=== PATIENT | female | born 1965 | race Caucasian/White ===

== ENCOUNTER 2017-04-11 12:15 | Inpatient (IN) | payer MEDICARE, OTHER ==
[~2017-04-11] VITALS: Ht 170.2 cm; Wt 58.9 kg
[~2017-04-11 12:15] MED LIST: CHOL100011 PO; DIME240C PO; DOCU50LI24 PO; FING0.5C3 PO; MULT1TAB57 PO; MUPI22OI2 TP; PANT40GR PEG; PREG50CA PO; Polyethylene Glycol 3350 PO
[2017-04-11] MEDS ORDERED: SODIUM CHLORIDE 0.9% 1,000 ML IV ONE ×2 (12:26→14:05)
[2017-04-11] MEDS ORDERED: SODIUM CHLORIDE 0.9% 1,000ML IVBOLUS ONE ×2 (12:30→13:30)
[2017-04-11] MEDS ORDERED: SODIUM CHLORIDE FLUSH 10ML SYR IVF ONE (12:30)
[2017-04-11] MEDS ORDERED: PLEASE ENTER HEIGHT AND WEIGHT MC SCH (13:00)
[2017-04-11 13:26] LABS: ASPARTATE AMINO TRANSFERASE 31 U/L (15-37); BLOOD UREA NITROGEN 11 mg/dL (7-18)
[2017-04-11] MEDS ORDERED: methylPREDNISolone SOD SUCC 40 MG/ML IV ONE (13:30)
[2017-04-11 13:39] LABS: DIFF TOTAL CELLS COUNTED 100 CELL DIFF
[2017-04-11 13:45] LABS: VERIFY COUNTS? YES
[2017-04-11 13:46] LABS: LARGE PLATELETS 1+
[2017-04-11] MEDS ORDERED: SODIUM CHLORIDE FLUSH 10ML SYR IVF PRN (14:30)
[2017-04-11] MEDS ORDERED: CEFTRIAXONE PMX 1GM/50ML 50 ML IVPB ONE (14:30)
[2017-04-11] MEDS ORDERED: CEFTRIAXONE PMX 1GM/50ML 50 ML ONE (14:52)
[2017-04-11] MEDS ORDERED: ACETAMINOPHEN 325 MG TABLET PO PRN (17:30)
[2017-04-11] MEDS: SODIUM CHLORIDE 0.9% 1,000 ML IV SCH (23:28)
[2017-04-11] MEDS: ENOXAPARIN 40 MG/0.4 ML SQ SCH (23:30)
[2017-04-11 23:37] VITALS: BP 123/87
[2017-04-12 04:47] VITALS: BP 130/81
[2017-04-12 06:04] LABS: BLOOD UREA NITROGEN 9 mg/dL (7-18)
[2017-04-12 06:28] LABS: DIFF TOTAL CELLS COUNTED 100 CELL DIFF
[2017-04-12 06:36] LABS: VERIFY COUNTS? YES
[2017-04-12 06:45] LABS: GIANT PLATELETS 1+; LARGE PLATELETS 1+
[2017-04-12] MEDS: SODIUM CHLORIDE 0.9% 1,000 ML IV SCH (08:21)
[2017-04-12 08:30] VITALS: BP 133/85
[2017-04-12] MEDS: FINGOLIMOD HCL 0.5 MG HOMEMEDPO SCH (11:57)
[2017-04-12 13:31] VITALS: BP 124/72
[2017-04-12] MEDS: CEFTRIAXONE PMX 1GM/50ML 50 ML IV SCH (14:36)
[2017-04-12 19:35] VITALS: BP 104/69
[2017-04-12] MEDS: ENOXAPARIN 40 MG/0.4 ML SQ SCH (20:53)
[2017-04-13 02:33] VITALS: BP 113/70
[2017-04-13 07:18] VITALS: BP 117/73
[2017-04-13] MEDS: FINGOLIMOD HCL 0.5 MG HOMEMEDPO SCH (09:00)
[2017-04-13] MEDS: CEFTRIAXONE PMX 1GM/50ML 50 ML IV SCH (14:54)
[2017-04-13 16:15] VITALS: BP 119/71
[2017-04-13 19:19] VITALS: BP 108/70
[2017-04-13] MEDS: ENOXAPARIN 40 MG/0.4 ML SQ SCH (20:39)
[2017-04-14 02:49] VITALS: BP 113/71
[2017-04-14 05:48] VITALS: BP 121/75
[2017-04-14] MEDS: FINGOLIMOD HCL 0.5 MG HOMEMEDPO SCH (09:00)
[2017-04-14 14:36] VITALS: BP 112/65
[2017-04-14] MEDS: CEFTRIAXONE PMX 1GM/50ML 50 ML IV SCH (14:47)
[2017-04-14] MEDS ORDERED: SULF1TAB24 PO (16:42)
[2017-04-14 19:20] VITALS: BP 127/83
== END 2017-04-14 20:58 | disposition home or self-care (01) | DRG 871 ==
LOC: ED 12:48 → INTOOBSV 14:05 → EDIP 14:05 → OBSVTOIN 14:05 → 3NE 15:12
PROVIDERS: ADMIT Internal Medicine; ATTEND Internal Medicine
PROC: 0T9B70Z Drainage of Bladder with Drainage Device, Via Natural or Artificial Opening (ICD-10-PCS; principal; 2017-04-11)
DX: A41.9 Sepsis, unspecified organism (principal); G93.41 Metabolic encephalopathy; N39.0 Urinary tract infection, site not specified; G35 Multiple sclerosis; Z99.3 Dependence on wheelchair; Z82.49 Family history of ischemic heart disease and other diseases of the circulatory system
CPT/HCPCS: 36415; 70450; 71010; 80048; 80053; 81001; 82010; 82550; 83605; 83735; 84145; 85025; 87040; 87086; 87324; 89055; 93005; 96361; 96365; J0696; J1650; J2930; G0378; J7030

== ENCOUNTER 2018-05-10 12:50 | Inpatient (IN) | payer MEDICARE, OTHER ==
[~2018-05-10] VITALS: Ht 165.1 cm; Wt 57.4 kg
[~2018-05-10 12:50] MED LIST changes: +SULF1TAB24 PO
[2018-05-10 13:43] LABS: ALBUMIN 3.5 g/dL (3.4-5.0); ANION GAP 3 mmol/L (5-15); CALCIUM 9.3 mg/dL (8.5-10.1); CHLORIDE 109 mmol/L (98-107); CREATININE 0.61 mg/dL (0.55-1.02)
[2018-05-10 13:54] LABS: MEAN CORPUSCULAR HEMOGLOBIN 28.8 pg (27.0-34.8); MEAN CORPUSCULAR HGB CONC 33.2 g/dL (32.4-35.8); MEAN CORPUSCULAR VOLUME 86.7 fL (80-100); MEAN PLATELET VOLUME 11.7 fL (7.4-10.4); PLATELET COUNT 228 x10^3/uL (130-400); RED BLOOD COUNT 5.56 x10^6/uL (3.82-5.3); RED CELL DISTRIBUTION WIDTH 13.4 % (9.6-15.2)
[2018-05-10 13:55] LABS: BASOPHILS # (AUTO) 0.05 x10^3/uL (0-0.1); BASOPHILS % (AUTO) 1 % (0-1); EOSINOPHILS # (AUTO) 0.17 x10^3/uL (0-0.4); EOSINOPHILS % (AUTO) 2 % (1-7); LYMPHOCYTES % (AUTO) 12 % (22-44); MD MORPH REVIEW ONLY; MONOCYTES # (AUTO) 0.71 x10^3/uL (0.2-0.8); MONOCYTES % (AUTO) 8 % (2-9); NEUTROPHILS # (AUTO) 6.97 x10^3/uL (1.8-6.8); NEUTROPHILS % (AUTO) 77 % (42-75)
[2018-05-10 13:56] LABS: <PLATELET ESTIMATE> ADEQUATE; <RBC MORPHOLOGY> NORMAL; GIANT PLATELETS 1+; LARGE PLATELETS 1+
[2018-05-10 14:00] LABS: MICROSCOPIC INDICATED
[2018-05-10] MEDS ORDERED: GADOBUTROL 7.5 MMOL/7.5 ML PFS ONE (14:06)
[2018-05-10 14:32] LABS: CULTURE INDICATED? YES
[2018-05-10] MEDS ORDERED: AUBAGIO (15:54)
[2018-05-10 16:24] VITALS: BP 125/80
[2018-05-10] MEDS ORDERED: TERI14TA PO (16:57)
[2018-05-10] MEDS ORDERED: CHOL10002 PO (16:59)
[2018-05-10] MEDS ORDERED: LABETALOL 5MG/ML, 20ML IVPush PRN (17:00)
[2018-05-10] MEDS: SODIUM CHLORIDE 0.9% 1,000 ML IV SCH (17:02)
[2018-05-10] MEDS: HEPARIN 5,000 UNITS/ML, 1ML SQ SCH (17:02)
[2018-05-10 19:54] VITALS: BP 113/75
[2018-05-11] MEDS: HEPARIN 5,000 UNITS/ML, 1ML SQ SCH ×3 (01:19→16:10)
[2018-05-11 01:33] VITALS: BP 111/75
[2018-05-11 05:25] LABS: ANION GAP 5 mmol/L (5-15); CALCIUM 8.7 mg/dL (8.5-10.1); CHLORIDE 112 mmol/L (98-107); CREATININE 0.47 mg/dL (0.55-1.02)
[2018-05-11 05:37] LABS: MEAN CORPUSCULAR HEMOGLOBIN 29.3 pg (27.0-34.8); MEAN CORPUSCULAR HGB CONC 33.4 g/dL (32.4-35.8); MEAN CORPUSCULAR VOLUME 87.7 fL (80-100); MEAN PLATELET VOLUME 11.5 fL (7.4-10.4); PLATELET COUNT 193 x10^3/uL (130-400); RED BLOOD COUNT 4.78 x10^6/uL (3.82-5.3); RED CELL DISTRIBUTION WIDTH 13.5 % (9.6-15.2)
[2018-05-11 06:05] LABS: BASOPHILS # (AUTO) 0.01 x10^3/uL (0-0.1); BASOPHILS % (AUTO) 0 % (0-1); EOSINOPHILS % (AUTO) 0 % (1-7); LYMPHOCYTES # (AUTO) 0.39 x10^3/uL (1-3.4); LYMPHOCYTES % (AUTO) 7 % (22-44); MD MORPH REVIEW ONLY; MONOCYTES # (AUTO) 0.02 x10^3/uL (0.2-0.8); MONOCYTES % (AUTO) 0 % (2-9); NEUTROPHILS % (AUTO) 92 % (42-75)
[2018-05-11 06:06] LABS: <PLATELET ESTIMATE> ADEQUATE; <RBC MORPHOLOGY> NORMAL; GIANT PLATELETS 1+; LARGE PLATELETS 1+
[2018-05-11] MEDS: SODIUM CHLORIDE 0.9% 1,000 ML IV SCH ×2 (06:15→21:31)
[2018-05-11 08:00] VITALS: BP 108/70
[2018-05-11] MEDS: CHOLECALCIFEROL 1,000 UNIT TABLET PO SCH (08:53)
[2018-05-11] MEDS: TERIFLUNOMIDE 14 MG PO SCH (08:53)
[2018-05-11] MEDS ORDERED: CEFTRIAXONE 1,000 MG in SODIUM CHLORIDE 0.9% 50 ML IV SCH (09:00)
[2018-05-11] MEDS ORDERED: methylPREDNISolone SOD SUCC 40 MG/ML IV SCH (09:00)
[2018-05-11 13:31] VITALS: BP 103/67
[2018-05-11] MEDS ORDERED: SODIUM CHLORIDE 0.9% 1,000ML IVBOLUS ONE (14:00)
[2018-05-11 17:59] VITALS: BP 113/73
[2018-05-11] MEDS ORDERED: SODIUM CHLORIDE 0.9%, 500ML IVBOLUS ONE (18:30)
[2018-05-11 20:00] VITALS: BP 106/69
[2018-05-12] MEDS: HEPARIN 5,000 UNITS/ML, 1ML SQ SCH ×3 (01:14→16:47)
[2018-05-12 01:18] VITALS: BP 126/81
[2018-05-12 08:00] VITALS: BP 126/81
[2018-05-12] MEDS: CHOLECALCIFEROL 1,000 UNIT TABLET PO SCH (08:00)
[2018-05-12] MEDS: TERIFLUNOMIDE 14 MG PO SCH (08:01)
[2018-05-12] MEDS: SODIUM CHLORIDE 0.9% 1,000 ML IV SCH (09:28)
[2018-05-12 14:00] VITALS: BP 144/84
[2018-05-12 18:24] VITALS: BP 115/78
[2018-05-12 20:01] VITALS: BP 120/81
[2018-05-13] MEDS: HEPARIN 5,000 UNITS/ML, 1ML SQ SCH ×3 (01:29→16:52)
[2018-05-13 01:30] VITALS: BP 146/93
[2018-05-13] MEDS: SODIUM CHLORIDE 0.9% 1,000 ML IV SCH ×2 (01:30→16:18)
[2018-05-13 07:13] VITALS: BP 132/84
[2018-05-13] MEDS: TERIFLUNOMIDE 14 MG PO SCH (07:57)
[2018-05-13] MEDS: CHOLECALCIFEROL 1,000 UNIT TABLET PO SCH (07:57)
[2018-05-13 13:00] VITALS: BP 113/75
[2018-05-13 13:43] VITALS: BP 127/81
[2018-05-13] MEDS ORDERED: SODIUM CHLORIDE 0.9%, 500ML IVBOLUS ONE (14:30)
[2018-05-13 20:38] VITALS: BP 122/79
[2018-05-14] MEDS: HEPARIN 5,000 UNITS/ML, 1ML SQ SCH ×3 (01:07→17:55)
[2018-05-14 05:39] VITALS: BP 136/85
[2018-05-14] MEDS: SODIUM CHLORIDE 0.9% 1,000 ML IV SCH ×2 (06:14→17:55)
[2018-05-14 07:26] VITALS: BP 118/72
[2018-05-14] MEDS: CHOLECALCIFEROL 1,000 UNIT TABLET PO SCH (10:14)
[2018-05-14] MEDS: TERIFLUNOMIDE 14 MG PO SCH (10:15)
[2018-05-14 12:22] VITALS: BP 125/80
[2018-05-14 20:54] VITALS: BP 125/82
[2018-05-15] MEDS: HEPARIN 5,000 UNITS/ML, 1ML SQ SCH ×3 (02:16→16:51)
[2018-05-15 02:25] VITALS: BP 152/92
[2018-05-15 07:56] VITALS: BP 126/79
[2018-05-15] MEDS: CHOLECALCIFEROL 1,000 UNIT TABLET PO SCH (08:26)
[2018-05-15] MEDS: TERIFLUNOMIDE 14 MG PO SCH (08:27)
[2018-05-15 12:25] VITALS: BP 115/72
[2018-05-15 21:45] VITALS: BP 156/88
[2018-05-16] MEDS: HEPARIN 5,000 UNITS/ML, 1ML SQ SCH ×3 (01:49→16:42)
[2018-05-16 02:17] VITALS: BP 133/83
[2018-05-16 06:50] VITALS: BP 113/70
[2018-05-16] MEDS: CHOLECALCIFEROL 1,000 UNIT TABLET PO SCH (09:36)
[2018-05-16] MEDS: TERIFLUNOMIDE 14 MG PO SCH (09:37)
[2018-05-16 14:54] VITALS: BP 133/86
[2018-05-16 18:50] VITALS: BP 99/64
[2018-05-17 00:54] VITALS: BP 126/81
[2018-05-17] MEDS: HEPARIN 5,000 UNITS/ML, 1ML SQ SCH ×2 (01:01→08:10)
[2018-05-17 07:00] VITALS: BP 131/82
[2018-05-17] MEDS: TERIFLUNOMIDE 14 MG PO SCH (08:10)
[2018-05-17] MEDS: CHOLECALCIFEROL 1,000 UNIT TABLET PO SCH (08:10)
[2018-05-17] MEDS ORDERED: PRED20TA PO (10:53)
[2018-05-17 13:46] VITALS: BP 108/71
== END 2018-05-17 16:45 | DRG 58 ==
LOC: ED 15:04 → EDIP 15:05 → ED 15:19 → 4EST 16:11
PROVIDERS: ADMIT Hospitalist; ATTEND Hospitalist
PROC: 0T9B70Z Drainage of Bladder with Drainage Device, Via Natural or Artificial Opening (ICD-10-PCS; principal; 2018-05-10)
DX: G35 Multiple sclerosis (principal); R53.2 Functional quadriplegia; N39.0 Urinary tract infection, site not specified; E44.0 Moderate protein-calorie malnutrition; R32 Unspecified urinary incontinence; Z68.21 Body mass index [BMI] 21.0-21.9, adult; Z87.440 Personal history of urinary (tract) infections; Z91.81 History of falling
CPT/HCPCS: 36415; 70553; 80048; 81001; 82040; 82962; 83735; 84100; 85025; 85379; 87086; 93005; 96374; A9585; J0696; J1644; J2930; J7030; J7040; J7512

== ENCOUNTER 2018-06-18 11:54 | Emergency (ER) | payer MEDICARE, OTHER ==
[~2018-06-18] VITALS: Ht 167.6 cm; Wt 110.0 kg
[~2018-06-18 11:54] MED LIST changes: +AUBAGIO; +CHOL10002 PO; +PRED20TA PO; +TERI14TA PO
[2018-06-18] MEDS ORDERED: CHOL10002 PO (12:21)
[2018-06-18] MEDS ORDERED: BACL-19 PO (12:21)
[2018-06-18] MEDS ORDERED: TERI14TA PO (12:21)
[2018-06-18] MEDS ORDERED: SODIUM CHLORIDE FLUSH 10ML SYR IVF ONE (12:30)
[2018-06-18] MEDS ORDERED: SODIUM CHLORIDE 0.9% 1,000ML IVBOLUS ONE (12:30)
[2018-06-18] MEDS ORDERED: PLEASE ENTER ALLERGIES MC SCH (12:30)
[2018-06-18 12:53] LABS: BASOPHILS # (AUTO) 0.07 x10^3/uL (0-0.1); BASOPHILS % (AUTO) 1 % (0-1); EOSINOPHILS # (AUTO) 0.07 x10^3/uL (0-0.4); EOSINOPHILS % (AUTO) 1 % (1-7); LYMPHOCYTES # (AUTO) 0.72 x10^3/uL (1-3.4); LYMPHOCYTES % (AUTO) 8 % (22-44); MD NO; MEAN CORPUSCULAR HEMOGLOBIN 29.4 pg (27.0-34.8); MEAN CORPUSCULAR HGB CONC 32.7 g/dL (32.4-35.8); MEAN CORPUSCULAR VOLUME 89.8 fL (80-100); MEAN PLATELET VOLUME 10.3 fL (7.4-10.4); MONOCYTES # (AUTO) 0.67 x10^3/uL (0.2-0.8); MONOCYTES % (AUTO) 7 % (2-9); NEUTROPHILS # (AUTO) 7.61 x10^3/uL (1.8-6.8); NEUTROPHILS % (AUTO) 83 % (42-75); PLATELET COUNT 234 x10^3/uL (130-400); RED BLOOD COUNT 4.85 x10^6/uL (3.82-5.3); RED CELL DISTRIBUTION WIDTH 15.8 % (9.6-15.2)
[2018-06-18 13:04] LABS: ALBUMIN 2.9 g/dL (3.4-5.0); ANION GAP 6 mmol/L (5-15); CALCIUM 8.9 mg/dL (8.5-10.1); CHLORIDE 112 mmol/L (98-107); CREATININE 0.57 mg/dL (0.55-1.02)
[2018-06-18 13:29] LABS: MICROSCOPIC INDICATED
[2018-06-18 13:33] LABS: CULTURE INDICATED? YES
[2018-06-18] MEDS ORDERED: CEFTRIAXONE 1,000 MG in SODIUM CHLORIDE 0.9% 50 ML IV ONE (14:00)
[2018-06-18] MEDS ORDERED: CEFTRIAXONE PMX 1GM/50ML 50 ML ONE (14:49)
[2018-06-18 14:53] VITALS: BP 122/80
== END 2018-06-18 15:23 | disposition home or self-care (01) ==
LOC: MERGE 11:54 → EDBD 11:54 → ED 14:12
DX: I10 Essential (primary) hypertension (principal); N30.00 Acute cystitis without hematuria; R50.9 Fever, unspecified; G35 Multiple sclerosis; Z74.01 Bed confinement status
CPT/HCPCS: 36415; 71045; 80048; 81001; 82040; 83605; 84145; 85025; 87040; 87077; 87086; 96365; 99285; J0696; J7030; 87186

== ENCOUNTER 2018-12-20 15:10 | Inpatient (IN) | payer MEDICARE, OTHER ==
[~2018-12-20] VITALS: Ht 167.6 cm; Wt 44.1 kg
[~2018-12-20 15:10] MED LIST changes: +BACL-19 PO; +SULF-169 PO
[2018-12-20] MEDS ORDERED: SODIUM CHLORIDE 0.9% 1,000ML IVBOLUS ONE ×3 (15:30→17:30)
[2018-12-20 16:06] LABS: MEAN CORPUSCULAR HEMOGLOBIN 29.5 pg (27.0-34.8); MEAN CORPUSCULAR HGB CONC 31.9 g/dL (32.4-35.8); MEAN CORPUSCULAR VOLUME 92.3 fL (80-100); MEAN PLATELET VOLUME 10.2 fL (7.4-10.4); PLATELET COUNT 324 x10^3/uL (130-400); RED BLOOD COUNT 4.59 x10^6/uL (3.82-5.3); RED CELL DISTRIBUTION WIDTH 14.9 % (9.6-15.2)
--- NOTE | 2018-12-20 16:09 | NUR ---
PT'S PREVIOUS PINO WHICH SHE CAME IN WITH REMOVED, PT STRAIGHT CATH'ED, SAMPLE WALKED TO LAB, PUREWICK APPLIED, XRAY AT BEDSIDE, FLUIDS INFUSING, PT REPORTS NO NEEDS AT THIS TIME. PT'S SACRAL WOUND DRESSED W/ MEPILEX
[2018-12-20 16:10] LABS: ALBUMIN 2.9 g/dL (3.4-5.0); ANION GAP 7 mmol/L (5-15); CALCIUM 8.1 mg/dL (8.5-10.1); CHLORIDE 111 mmol/L (98-107)
--- NOTE | 2018-12-20 16:11 | NUR ---
Report from Cynthia SMITH.
[2018-12-20 16:13] LABS: ALANINE AMINOTRANSFERASE 12 U/L (12-78); ALKALINE PHOSPHATASE 72 U/L (45-117); BILIRUBIN,TOTAL 0.7 mg/dL (0.2-1.0); CREATININE 0.62 mg/dL (0.55-1.02); TOTAL PROTEIN 6.2 g/dL (6.4-8.2)
--- NOTE | 2018-12-20 16:17 | NUR ---
bedside report to jesica dorsey care transferred at this time
[2018-12-20 16:26] LABS: MICROSCOPIC INDICATED
[2018-12-20 16:27] LABS: MD YES
[2018-12-20 16:27] LABS: CULTURE INDICATED? YES
[2018-12-20 17:14] LABS: BAND#(MANUAL) 0.96 x10^3/uL; BANDS%(MANUAL) 5 % (0-7); LYMPH#(MANUAL) 0.57 x10^3/uL (1-3.4); LYMPHS% (MANUAL) 3 % (22-44); MONOS#(MANUAL) 0.76 x10^3/uL (0.3-2.7); MONOS% (MANUAL) 4 % (2-9); SEG#(MANUAL) 16.81 x10^3/uL (1.8-6.8); SEGS% (MANUAL) 88 % (42-75)
[2018-12-20 17:15] LABS: <PLATELET ESTIMATE> ADEQUATE; <PLT MORPHOLOGY> NORMAL PLT MORPH; <RBC MORPHOLOGY> NORMAL
[2018-12-20] MEDS ORDERED: CEFTRIAXONE PMX 1GM/50ML 50 ML ONE (17:20)
[2018-12-20] MEDS ORDERED: CEFTRIAXONE PMX 1GM/50ML 50 ML IV ONE (17:30)
--- NOTE | 2018-12-20 17:35 | NUR ---
Report to floor RN. Pt ready for transport. ABX infusing to floor, per md only 2L ns to be infused, 3rd L non administered. Purewick in place, output in canister, chucks changed, pt cleaned.
[2018-12-20] MEDS ORDERED: POLYETHYLENE GLYCOL 17 GM PACKET PO PRN (18:30)
[2018-12-20] MEDS ORDERED: CEFTRIAXONE PMX 1GM/50ML 50 ML IV SCH (18:30)
[2018-12-20] MEDS ORDERED: ACETAMINOPHEN 325 MG TABLET PO PRN (18:30)
[2018-12-20] MEDS ORDERED: ONDANSETRON ODT 4 MG PO PRN (18:30)
[2018-12-20] MEDS ORDERED: BISACODYL 10 MG SUPP PR PRN (18:30)
[2018-12-20 18:54] VITALS: BP 122/84
[2018-12-20] MEDS: SODIUM CHLORIDE 0.9% 1,000 ML IV SCH (19:51)
[2018-12-20] MEDS: LEVOFLOXACIN/PMX 500MG/100ML 100 ML IV SCH (19:54)
[2018-12-20] MEDS: HEPARIN 5,000 UNITS/ML, 1ML SQ SCH (22:22)
[2018-12-21] MEDS: SODIUM CHLORIDE 0.9% 1,000 ML IV SCH ×4 (02:23→23:04)
[2018-12-21 02:30] VITALS: BP 145/80
[2018-12-21 05:12] LABS: BASOPHILS # (AUTO) 0.05 x10^3/uL (0-0.1); BASOPHILS % (AUTO) 0 % (0-1); EOSINOPHILS # (AUTO) 0.03 x10^3/uL (0-0.4); EOSINOPHILS % (AUTO) 0 % (1-7); LYMPHOCYTES # (AUTO) 0.79 x10^3/uL (1-3.4); LYMPHOCYTES % (AUTO) 6 % (22-44); MD NO; MEAN CORPUSCULAR HEMOGLOBIN 30.1 pg (27.0-34.8); MEAN CORPUSCULAR HGB CONC 32.8 g/dL (32.4-35.8); MEAN CORPUSCULAR VOLUME 91.7 fL (80-100); MEAN PLATELET VOLUME 10.5 fL (7.4-10.4); MONOCYTES # (AUTO) 0.71 x10^3/uL (0.2-0.8); MONOCYTES % (AUTO) 5 % (2-9); NEUTROPHILS # (AUTO) 11.47 x10^3/uL (1.8-6.8); NEUTROPHILS % (AUTO) 88 % (42-75); PLATELET COUNT 271 x10^3/uL (130-400); RED BLOOD COUNT 4.03 x10^6/uL (3.82-5.3); RED CELL DISTRIBUTION WIDTH 14.7 % (9.6-15.2)
[2018-12-21 05:14] LABS: ALANINE AMINOTRANSFERASE 11 U/L (12-78); ALBUMIN 2.5 g/dL (3.4-5.0); ANION GAP 5 mmol/L (5-15); CALCIUM 8.3 mg/dL (8.5-10.1); CHLORIDE 113 mmol/L (98-107)
[2018-12-21 05:17] LABS: ALKALINE PHOSPHATASE 67 U/L (45-117); BILIRUBIN,TOTAL 0.6 mg/dL (0.2-1.0); CREATININE 0.36 mg/dL (0.55-1.02); TOTAL PROTEIN 5.7 g/dL (6.4-8.2)
[2018-12-21] MEDS: HEPARIN 5,000 UNITS/ML, 1ML SQ SCH ×3 (05:50→23:04)
[2018-12-21 08:01] VITALS: BP 124/84
[2018-12-21] MEDS: TERIFLUNOMIDE 14 MG PO SCH (09:00)
[2018-12-21] MEDS: SENNA/DOCUSATE TABLET PO SCH (10:55)
[2018-12-21] MEDS: CHOLECALCIFEROL 1,000 UNIT TABLET PO SCH (11:05)
--- NOTE | 2018-12-21 13:07 | NUR ---
REC: Chopped diet with thin liquids; aspiration precautions Addendum: 12/21/18 at 1307 by Jade KOCH Amended: Links added.
[2018-12-21 14:38] VITALS: BP 123/81
[2018-12-21] MEDS: LEVOFLOXACIN/PMX 500MG/100ML 100 ML IV SCH (18:40)
[2018-12-21 19:03] VITALS: BP 121/77
[2018-12-22 01:07] VITALS: BP 138/89
[2018-12-22] MEDS: SODIUM CHLORIDE 0.9% 1,000 ML IV SCH ×3 (05:13→22:22)
[2018-12-22] MEDS: HEPARIN 5,000 UNITS/ML, 1ML SQ SCH ×2 (06:41→15:52)
[2018-12-22 06:56] LABS: ALBUMIN 2.6 g/dL (3.4-5.0); ANION GAP 6 mmol/L (5-15); CALCIUM 8.3 mg/dL (8.5-10.1); CHLORIDE 113 mmol/L (98-107); CREATININE 0.33 mg/dL (0.55-1.02)
[2018-12-22 06:58] LABS: BASOPHILS # (AUTO) 0.07 x10^3/uL (0-0.1); BASOPHILS % (AUTO) 1 % (0-1); EOSINOPHILS # (AUTO) 0.17 x10^3/uL (0-0.4); EOSINOPHILS % (AUTO) 2 % (1-7); LYMPHOCYTES # (AUTO) 0.81 x10^3/uL (1-3.4); LYMPHOCYTES % (AUTO) 11 % (22-44); MD NO; MEAN CORPUSCULAR HEMOGLOBIN 30.3 pg (27.0-34.8); MEAN CORPUSCULAR VOLUME 91.8 fL (80-100); MEAN PLATELET VOLUME 10.4 fL (7.4-10.4); MONOCYTES # (AUTO) 0.53 x10^3/uL (0.2-0.8); MONOCYTES % (AUTO) 7 % (2-9); NEUTROPHILS # (AUTO) 5.77 x10^3/uL (1.8-6.8); NEUTROPHILS % (AUTO) 79 % (42-75); PLATELET COUNT 254 x10^3/uL (130-400); RED BLOOD COUNT 4.13 x10^6/uL (3.82-5.3); RED CELL DISTRIBUTION WIDTH 14.7 % (9.6-15.2)
[2018-12-22] MEDS: CHOLECALCIFEROL 1,000 UNIT TABLET PO SCH (07:39)
[2018-12-22] MEDS: SENNA/DOCUSATE TABLET PO SCH (07:39)
[2018-12-22] MEDS: TERIFLUNOMIDE 14 MG PO SCH (07:40)
[2018-12-22 08:22] VITALS: BP 109/73
[2018-12-22] MEDS ORDERED: POTASSIUM CHLORIDE 40 MEQ in SODIUM CHLORIDE 0.9% 500 ML IV ONE (10:00)
[2018-12-22 14:55] VITALS: BP 115/82
[2018-12-22] MEDS ORDERED: LEVOFLOXACIN 500 MG TABLET PO SCH (18:00)
[2018-12-22 20:30] VITALS: BP 119/75
[2018-12-23] MEDS: HEPARIN 5,000 UNITS/ML, 1ML SQ SCH ×3 (01:15→18:00)
[2018-12-23 02:59] VITALS: BP 144/82
[2018-12-23] MEDS: SODIUM CHLORIDE 0.9% 1,000 ML IV SCH ×2 (04:55→22:29)
[2018-12-23 05:48] LABS: ALBUMIN 2.4 g/dL (3.4-5.0); ANION GAP 6 mmol/L (5-15); CALCIUM 8.3 mg/dL (8.5-10.1); CHLORIDE 115 mmol/L (98-107); CREATININE 0.26 mg/dL (0.55-1.02)
[2018-12-23 06:53] VITALS: BP 138/85
[2018-12-23] MEDS: LEVOFLOXACIN/PMX 750MG/150ML 150 ML IV SCH (09:56)
[2018-12-23] MEDS: TERIFLUNOMIDE 14 MG PO SCH (09:57)
[2018-12-23] MEDS: CHOLECALCIFEROL 1,000 UNIT TABLET PO SCH (09:57)
[2018-12-23] MEDS: SENNA/DOCUSATE TABLET PO SCH (09:57)
[2018-12-23] MEDS ORDERED: POTASSIUM CHLORIDE 10% 40 MEQ/30 ML UDC PO ONE (11:00)
[2018-12-23 12:57] VITALS: BP 116/77
[2018-12-23 20:25] VITALS: BP 117/80
[2018-12-24] MEDS: HEPARIN 5,000 UNITS/ML, 1ML SQ SCH ×3 (01:58→17:00)
[2018-12-24 02:06] VITALS: BP 144/92
[2018-12-24 02:08] VITALS: BP 129/86
[2018-12-24 04:56] LABS: ALBUMIN 2.5 g/dL (3.4-5.0); ANION GAP 5 mmol/L (5-15); CALCIUM 8.8 mg/dL (8.5-10.1); CHLORIDE 112 mmol/L (98-107)
[2018-12-24 04:57] LABS: CREATININE 0.23 mg/dL (0.55-1.02)
[2018-12-24] MEDS: SODIUM CHLORIDE 0.9% 1,000 ML IV SCH ×2 (05:11→14:30)
[2018-12-24 07:36] VITALS: BP 128/81
[2018-12-24] MEDS: CHOLECALCIFEROL 1,000 UNIT TABLET PO SCH (09:00)
[2018-12-24] MEDS: LEVOFLOXACIN/PMX 750MG/150ML 150 ML IV SCH (09:31)
[2018-12-24] MEDS: TERIFLUNOMIDE 14 MG PO SCH (09:32)
[2018-12-24] MEDS: SENNA/DOCUSATE TABLET PO SCH (09:32)
[2018-12-24] MEDS ORDERED: CEFD300C37 PO (13:06)
[2018-12-24] MEDS ORDERED: L.AC1CAP6 PO (13:06)
[2018-12-24 13:55] VITALS: BP 110/73
== END 2018-12-24 16:00 | disposition home health service (06) | DRG 872 ==
LOC: ED 15:48 → EDIP 17:20 → 3NW 18:28
PROVIDERS: ADMIT Internal Medicine; ATTEND Internal Medicine
PROC: 0T9B70Z Drainage of Bladder with Drainage Device, Via Natural or Artificial Opening (ICD-10-PCS; principal; 2018-12-20)
DX: A41.51 Sepsis due to Escherichia coli [E. coli] (principal); E44.0 Moderate protein-calorie malnutrition; E87.2 Acidosis; G82.20 Paraplegia, unspecified; N12 Tubulo-interstitial nephritis, not specified as acute or chronic; Z68.1 Body mass index [BMI] 19.9 or less, adult; R65.20 Severe sepsis without septic shock; M41.9 Scoliosis, unspecified; L89.159 Pressure ulcer of sacral region, unspecified stage; G35 Multiple sclerosis; R13.10 Dysphagia, unspecified; R32 Unspecified urinary incontinence; Z87.440 Personal history of urinary (tract) infections; Z82.49 Family history of ischemic heart disease and other diseases of the circulatory system; Z82.3 Family history of stroke; Z74.01 Bed confinement status
CPT/HCPCS: 36415; 71045; 80048; 80053; 81001; 82040; 83605; 84145; 84439; 84443; 85025; 87040; 87077; 87086; 87186; 93005; 99285; G0378; J0696; J1644; J1956; J3480; J7030; J7040

== ENCOUNTER 2019-01-08 15:33 | Inpatient (IN) | payer MEDICARE, OTHER ==
[~2019-01-08] VITALS: Ht 167.6 cm; Wt 49.3 kg
[~2019-01-08 15:33] MED LIST changes: +CEFD300C37 PO; +L.AC1CAP6 PO
[2019-01-08] MEDS ORDERED: LACT1CAP35 PO (15:51)
[2019-01-08] MEDS ORDERED: METH1TAB21 PO (15:51)
[2019-01-08] MEDS ORDERED: BIOT25005 PO (15:51)
[2019-01-08] MEDS ORDERED: ASCO500T8 PO (15:51)
[2019-01-08] MEDS ORDERED: SODIUM CHLORIDE 0.9% 1,000ML IVBOLUS ONE ×2 (16:00→17:00)
--- NOTE | 2019-01-08 16:02 | NUR ---
53 YR OLD FEMALE ARRIVED VIA EMS. PT CURRENTLY DOES NOT HAVE ANY COMPLAINTS. PER CAREGIVER, PT WITH INCREASED WEAKNESS, INCREASED DIFFICULTY SWALLOWING, MORE DIFFICULTY SPEAKING, FEVERS 99.6 TODAY. NO MEDICATION FOR FEVER GIVEN.. PT WITH PINO CATH IN PLACE. PER CAREGIVER WAS PLACED APPROX December. PT RECEIVED 300MLS NS PLASTIC SEWER, 20G IV IN LAC. PT HAD BM TODAY. FAMILY AND PT UPDATED ON POC. NO NEEDS EXPRESSED AT THIS TIME.
--- NOTE | 2019-01-08 16:12 | NUR ---
REPORT MICHAEL SMITH.
--- NOTE | 2019-01-08 16:42 | NUR ---
PT RESTING ON GURNIKO. TROY. FAMILY AT BEDSIDE. AWARE OF POC.
[2019-01-08 16:50] LABS: MEAN CORPUSCULAR HEMOGLOBIN 29.5 pg (27.0-34.8); MEAN CORPUSCULAR HGB CONC 32.4 g/dL (32.4-35.8); MEAN CORPUSCULAR VOLUME 90.9 fL (80-100); MEAN PLATELET VOLUME 10.1 fL (7.4-10.4); PLATELET COUNT 302 x10^3/uL (130-400); RED CELL DISTRIBUTION WIDTH 14.3 % (9.6-15.2)
[2019-01-08] MEDS ORDERED: VANCOMYCIN PER PHARMACY MC ONE (17:00)
[2019-01-08] MEDS ORDERED: PIPERACILLIN/TAZO/PMX 3.375GM 50 ML IVPB ONE (17:00)
[2019-01-08] MEDS ORDERED: VANCOMYCIN PMX 1GM/200ML 200 ML IVPB ONE (17:00)
[2019-01-08] MEDS ORDERED: PHARMACOKINETIC CONSULTATION MC ONE (17:00)
[2019-01-08 17:06] LABS: CHLORIDE 110 mmol/L (98-107)
[2019-01-08 17:16] LABS: ALBUMIN 3.1 g/dL (3.4-5.0); ANION GAP 6 mmol/L (5-15); CALCIUM 8.7 mg/dL (8.5-10.1); TROPONIN I < 0.015 ng/mL (0.000-0.045)
--- NOTE | 2019-01-08 17:40 | NUR ---
PATIENT RESTING QUIETLY ON GURNEY. PAIN 0/10.
[2019-01-08 17:43] LABS: BASOPHILS # (AUTO) 0.02 x10^3/uL (0-0.1); BASOPHILS % (AUTO) 0 % (0-1); EOSINOPHILS # (AUTO) 0.18 x10^3/uL (0-0.4); EOSINOPHILS % (AUTO) 1 % (1-7); LYMPHOCYTES # (AUTO) 1.01 x10^3/uL (1-3.4); LYMPHOCYTES % (AUTO) 5 % (22-44); MD SCAN; MONOCYTES # (AUTO) 0.61 x10^3/uL (0.2-0.8); MONOCYTES % (AUTO) 3 % (2-9); NEUTROPHILS # (AUTO) 18.15 x10^3/uL (1.8-6.8); NEUTROPHILS % (AUTO) 91 % (42-75)
[2019-01-08 17:45] LABS: CULTURE INDICATED? YES; MICROSCOPIC INDICATED
--- NOTE | 2019-01-08 18:45 | NUR ---
PT RESTING ON GURNEY. NADN. VSS. PT NOTED TO BE RED AFTER VANCOMYCIN. [facility] AWARE.
[2019-01-08] MEDS ORDERED: DIPHENHYDRAMINE 50 MG/ML, 1ML ONE (18:57)
[2019-01-08] MEDS ORDERED: DIPHENHYDRAMINE 50 MG/ML, 1ML IVPush ONE (19:00)
--- NOTE | 2019-01-08 19:02 | NUR ---
ERP DR. 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 PT MEDICATED PER NOV.
--- NOTE | 2019-01-08 19:16 | NUR ---
REPORT GIVEN TO GINO MILIAN RN. AWARE TO CHECK ON PT AND ENSURE REACTION SUBSIDING AFTER IV BENADRYL. FAMILY AWARE TO NOTIFY STAFF OF CHANGES.
--- NOTE | 2019-01-08 20:06 | NUR ---
CHECKED PT NECK, REDNESS IMPROVING, NO DISTRESS NOTED, FAMILY AT BS
[2019-01-08] MEDS ORDERED: LIDODERM 5% PATCH TD PRN (20:30)
[2019-01-08] MEDS ORDERED: LABETALOL 5MG/ML, 20ML IVPush PRN (20:30)
[2019-01-08] MEDS ORDERED: DOCUSATE 100 MG CAPSULE PO PRN (20:30)
[2019-01-08] MEDS ORDERED: VANCOMYCIN PER PHARMACY MC PRN (20:30)
[2019-01-08] MEDS ORDERED: ONDANSETRON ODT 4 MG PO PRN (20:30)
[2019-01-08] MEDS ORDERED: ACETAMINOPHEN 325 MG TABLET PO PRN (20:30)
[2019-01-08] MEDS ORDERED: TEMPLATE NON-FORMULARY MED. (Biotin** 5,000 MG) PO SCH (21:00)
[2019-01-08] MEDS ORDERED: DIPHENHYDRAMINE 25 MG CAPSULE PO PRN (21:00)
--- NOTE | 2019-01-08 21:38 | NUR ---
REPORT GVEN TO SARAH HAM
[2019-01-08] MEDS ORDERED: PHARMACOKINETIC MONITORING MC PRN (22:00)
[2019-01-08 22:27] VITALS: BP 132/76
[2019-01-08] MEDS: ENOXAPARIN 40 MG/0.4 ML SQ SCH (22:41)
[2019-01-08] MEDS: ASCORBIC ACID 500 MG TABLET PO SCH (22:41)
[2019-01-08] MEDS: METHENAMINE HIPPURATE 1 GM TABLET PO SCH (22:41)
[2019-01-08] MEDS: SODIUM CHLORIDE 0.9% 1,000 ML IV SCH (22:41)
[2019-01-09 00:28] VITALS: BP 138/88
[2019-01-09] MEDS: PIPERACILLIN/TAZO/PMX 3.375GM 50 ML IV SCH ×3 (03:02→18:23)
[2019-01-09] MEDS ORDERED: VANCOMYCIN 800 MG in SODIUM CHLORIDE 0.9% 100 ML IV SCH (06:00)
[2019-01-09 06:23] LABS: MEAN CORPUSCULAR HGB CONC 33.3 g/dL (32.4-35.8); MEAN CORPUSCULAR VOLUME 90.1 fL (80-100); MEAN PLATELET VOLUME 10.3 fL (7.4-10.4); PLATELET COUNT 250 x10^3/uL (130-400); RED BLOOD COUNT 3.89 x10^6/uL (3.82-5.3); RED CELL DISTRIBUTION WIDTH 14.1 % (9.6-15.2)
[2019-01-09 06:24] LABS: CHLORIDE 116 mmol/L (98-107)
[2019-01-09 06:30] LABS: ANION GAP 8 mmol/L (5-15); CALCIUM 7.9 mg/dL (8.5-10.1); CREATININE 0.29 mg/dL (0.55-1.02)
[2019-01-09 06:47] LABS: BASOPHILS # (AUTO) 0.12 x10^3/uL (0-0.1); BASOPHILS % (AUTO) 1 % (0-1); EOSINOPHILS # (AUTO) 0.15 x10^3/uL (0-0.4); EOSINOPHILS % (AUTO) 1 % (1-7); LYMPHOCYTES # (AUTO) 1.02 x10^3/uL (1-3.4); LYMPHOCYTES % (AUTO) 7 % (22-44); MD SCAN; MONOCYTES # (AUTO) 0.78 x10^3/uL (0.2-0.8); MONOCYTES % (AUTO) 5 % (2-9); NEUTROPHILS # (AUTO) 12.94 x10^3/uL (1.8-6.8); NEUTROPHILS % (AUTO) 86 % (42-75)
[2019-01-09] MEDS ORDERED: POTASSIUM CHLORIDE 40 MEQ in SODIUM CHLORIDE 0.9% 500 ML IV ONE (07:00)
[2019-01-09 08:40] VITALS: BP 149/88
[2019-01-09] MEDS: ASCORBIC ACID 500 MG TABLET PO SCH ×2 (09:35→20:57)
[2019-01-09] MEDS: TERIFLUNOMIDE 14 MG HOMEMEDPO SCH (09:35)
[2019-01-09] MEDS: LACTOBACILLUS CHEW TABLET PO SCH ×2 (09:35→20:57)
[2019-01-09] MEDS: METHENAMINE HIPPURATE 1 GM TABLET PO SCH ×2 (09:36→20:57)
[2019-01-09] MEDS: SODIUM CHLORIDE 0.9% 1,000 ML IV SCH (09:41)
[2019-01-09] MEDS ORDERED: CALCIUM CARBONATE 500 MG TAB.CHEW PO PRN (11:00)
[2019-01-09 11:13] LABS: CLOSTRIDIUM DIFFICILE ANTIGEN POSITIVE; CLOSTRIDIUM DIFFICILE TOXIN NEGATIVE (Negative)
[2019-01-09] MEDS ORDERED: OMNIPAQUE 350 MG/ML, 100ML BOTTLE ONE (12:46)
[2019-01-09] MEDS: VANCOMYCIN 50 MG/ML ORAL SUSP PO SCH ×2 (14:03→20:57)
[2019-01-09 14:10] VITALS: BP 106/71
[2019-01-09 19:06] VITALS: BP 102/66
[2019-01-09] MEDS: ENOXAPARIN 40 MG/0.4 ML SQ SCH (20:57)
[2019-01-10 00:04] VITALS: BP 130/80
[2019-01-10] MEDS: SODIUM CHLORIDE 0.9% 1,000 ML IV SCH ×3 (00:06→23:38)
[2019-01-10] MEDS: PIPERACILLIN/TAZO/PMX 3.375GM 50 ML IV SCH ×4 (00:06→20:48)
[2019-01-10] MEDS: VANCOMYCIN 50 MG/ML ORAL SUSP PO SCH ×4 (02:05→22:58)
[2019-01-10 05:46] LABS: BASOPHILS # (AUTO) 0.08 x10^3/uL (0-0.1); BASOPHILS % (AUTO) 1 % (0-1); EOSINOPHILS # (AUTO) 0.32 x10^3/uL (0-0.4); EOSINOPHILS % (AUTO) 4 % (1-7); LYMPHOCYTES # (AUTO) 1.19 x10^3/uL (1-3.4); LYMPHOCYTES % (AUTO) 15 % (22-44); MD NO; MEAN CORPUSCULAR HEMOGLOBIN 30.2 pg (27.0-34.8); MEAN CORPUSCULAR HGB CONC 33.2 g/dL (32.4-35.8); MEAN CORPUSCULAR VOLUME 91.1 fL (80-100); MEAN PLATELET VOLUME 10.3 fL (7.4-10.4); MONOCYTES # (AUTO) 0.53 x10^3/uL (0.2-0.8); MONOCYTES % (AUTO) 7 % (2-9); NEUTROPHILS # (AUTO) 5.94 x10^3/uL (1.8-6.8); NEUTROPHILS % (AUTO) 74 % (42-75); PLATELET COUNT 257 x10^3/uL (130-400); RED BLOOD COUNT 4.08 x10^6/uL (3.82-5.3); RED CELL DISTRIBUTION WIDTH 14.2 % (9.6-15.2)
[2019-01-10 06:00] LABS: CHLORIDE 114 mmol/L (98-107)
[2019-01-10 06:31] LABS: ALANINE AMINOTRANSFERASE 12 U/L (12-78); ALBUMIN 2.6 g/dL (3.4-5.0); ALKALINE PHOSPHATASE 62 U/L (45-117); ANION GAP 8 mmol/L (5-15); BILIRUBIN,TOTAL 0.3 mg/dL (0.2-1.0); CALCIUM 8.6 mg/dL (8.5-10.1); CREATININE 0.35 mg/dL (0.55-1.02); TOTAL PROTEIN 5.8 g/dL (6.4-8.2)
[2019-01-10 08:30] VITALS: BP 125/80
[2019-01-10] MEDS: METHENAMINE HIPPURATE 1 GM TABLET PO SCH ×2 (10:17→20:48)
[2019-01-10] MEDS: LACTOBACILLUS CHEW TABLET PO SCH ×2 (10:17→20:48)
[2019-01-10] MEDS: ASCORBIC ACID 500 MG TABLET PO SCH ×2 (10:18→20:48)
[2019-01-10] MEDS: TERIFLUNOMIDE 14 MG HOMEMEDPO SCH (13:15)
[2019-01-10 13:30] VITALS: BP 127/82
[2019-01-10] MEDS: ENOXAPARIN 40 MG/0.4 ML SQ SCH (20:49)
[2019-01-10 20:53] VITALS: BP 130/80
[2019-01-11 01:09] VITALS: BP 123/71
[2019-01-11] MEDS: PIPERACILLIN/TAZO/PMX 3.375GM 50 ML IV SCH ×4 (02:41→21:10)
[2019-01-11] MEDS: VANCOMYCIN 50 MG/ML ORAL SUSP PO SCH ×4 (04:09→22:16)
[2019-01-11 05:40] LABS: MEAN CORPUSCULAR HEMOGLOBIN 30.2 pg (27.0-34.8); MEAN CORPUSCULAR HGB CONC 33.6 g/dL (32.4-35.8); MEAN CORPUSCULAR VOLUME 90.1 fL (80-100); MEAN PLATELET VOLUME 9.9 fL (7.4-10.4); PLATELET COUNT 251 x10^3/uL (130-400); RED CELL DISTRIBUTION WIDTH 13.9 % (9.6-15.2)
[2019-01-11 05:57] LABS: CHLORIDE 114 mmol/L (98-107)
[2019-01-11 06:20] LABS: ALANINE AMINOTRANSFERASE 12 U/L (12-78); ALBUMIN 2.5 g/dL (3.4-5.0); ALKALINE PHOSPHATASE 55 U/L (45-117); ANION GAP 8 mmol/L (5-15); BILIRUBIN,TOTAL 0.4 mg/dL (0.2-1.0); CALCIUM 8.6 mg/dL (8.5-10.1); TOTAL PROTEIN 5.6 g/dL (6.4-8.2)
[2019-01-11 07:08] LABS: BASOPHILS # (AUTO) 0.11 x10^3/uL (0-0.1); BASOPHILS % (AUTO) 2 % (0-1); EOSINOPHILS # (AUTO) 0.22 x10^3/uL (0-0.4); EOSINOPHILS % (AUTO) 4 % (1-7); LYMPHOCYTES # (AUTO) 1.19 x10^3/uL (1-3.4); LYMPHOCYTES % (AUTO) 23 % (22-44); MD SCAN; MONOCYTES # (AUTO) 0.53 x10^3/uL (0.2-0.8); MONOCYTES % (AUTO) 10 % (2-9); NEUTROPHILS # (AUTO) 3.19 x10^3/uL (1.8-6.8); NEUTROPHILS % (AUTO) 61 % (42-75)
[2019-01-11 08:06] VITALS: BP 125/84
[2019-01-11] MEDS: TERIFLUNOMIDE 14 MG HOMEMEDPO SCH (09:00)
[2019-01-11] MEDS: METHENAMINE HIPPURATE 1 GM TABLET PO SCH ×2 (09:00→21:10)
[2019-01-11] MEDS: ASCORBIC ACID 500 MG TABLET PO SCH ×2 (09:53→21:10)
[2019-01-11] MEDS: SODIUM CHLORIDE 0.9% 1,000 ML IV SCH ×2 (09:53→21:11)
[2019-01-11] MEDS: LACTOBACILLUS CHEW TABLET PO SCH ×2 (09:53→21:10)
[2019-01-11 14:13] VITALS: BP 128/79
[2019-01-11 14:16] VITALS: BP 127/79
[2019-01-11] MEDS: ENOXAPARIN 40 MG/0.4 ML SQ SCH (21:11)
[2019-01-11 22:35] VITALS: BP 117/76
[2019-01-12 00:35] VITALS: BP 103/68
[2019-01-12] MEDS: PIPERACILLIN/TAZO/PMX 3.375GM 50 ML IV SCH (03:26)
[2019-01-12] MEDS: VANCOMYCIN 50 MG/ML ORAL SUSP PO SCH ×2 (04:27→09:55)
[2019-01-12] MEDS: SODIUM CHLORIDE 0.9% 1,000 ML IV SCH (04:27)
[2019-01-12 07:25] LABS: BASOPHILS # (AUTO) 0.06 x10^3/uL (0-0.1); BASOPHILS % (AUTO) 1 % (0-1); EOSINOPHILS # (AUTO) 0.19 x10^3/uL (0-0.4); EOSINOPHILS % (AUTO) 4 % (1-7); LYMPHOCYTES # (AUTO) 1.12 x10^3/uL (1-3.4); LYMPHOCYTES % (AUTO) 23 % (22-44); MD NO; MEAN CORPUSCULAR HEMOGLOBIN 29.2 pg (27.0-34.8); MEAN CORPUSCULAR VOLUME 91.2 fL (80-100); MONOCYTES # (AUTO) 0.49 x10^3/uL (0.2-0.8); MONOCYTES % (AUTO) 10 % (2-9); NEUTROPHILS # (AUTO) 3.03 x10^3/uL (1.8-6.8); NEUTROPHILS % (AUTO) 62 % (42-75); PLATELET COUNT 293 x10^3/uL (130-400); RED BLOOD COUNT 4.23 x10^6/uL (3.82-5.3); RED CELL DISTRIBUTION WIDTH 14.2 % (9.6-15.2)
[2019-01-12 07:35] LABS: ANION GAP 7 mmol/L (5-15); CALCIUM 8.7 mg/dL (8.5-10.1); CHLORIDE 114 mmol/L (98-107); CREATININE 0.54 mg/dL (0.55-1.02)
[2019-01-12 07:42] VITALS: BP 119/82
[2019-01-12] MEDS: METHENAMINE HIPPURATE 1 GM TABLET PO SCH (08:47)
[2019-01-12] MEDS: ASCORBIC ACID 500 MG TABLET PO SCH (08:47)
[2019-01-12] MEDS: TERIFLUNOMIDE 14 MG HOMEMEDPO SCH (08:47)
[2019-01-12] MEDS: LACTOBACILLUS CHEW TABLET PO SCH (08:47)
[2019-01-12] MEDS ORDERED: CIPROFLOXACIN 750 MG TABLET PO SCH (09:00)
[2019-01-12 12:44] VITALS: BP 116/77
[2019-01-12] MEDS ORDERED: VANC1VIA3 PO (13:53)
[2019-01-12] MEDS ORDERED: CIPR750T PO (13:53)
== END 2019-01-12 15:50 | disposition home health service (06) | DRG 871 ==
LOC: ED 16:49 → EDIP 20:47 → 5SO 21:57 → 4EST 01-11 07:42
PROVIDERS: ADMIT Internal Medicine; ATTEND Internal Medicine
PROC: 0T9B70Z Drainage of Bladder with Drainage Device, Via Natural or Artificial Opening (ICD-10-PCS; principal; 2019-01-08)
DX: A41.9 Sepsis, unspecified organism (principal); R53.2 Functional quadriplegia; N10 Acute pyelonephritis; T83.518A Infection and inflammatory reaction due to other urinary catheter, initial encounter; A04.72 Enterocolitis due to Clostridium difficile, not specified as recurrent; Z68.1 Body mass index [BMI] 19.9 or less, adult; E87.6 Hypokalemia; G35 Multiple sclerosis; L89.159 Pressure ulcer of sacral region, unspecified stage; B96.5 Pseudomonas (aeruginosa) (mallei) (pseudomallei) as the cause of diseases classified elsewhere; N31.9 Neuromuscular dysfunction of bladder, unspecified; R13.10 Dysphagia, unspecified; R63.6 Underweight; Y84.6 Urinary catheterization as the cause of abnormal reaction of the patient, or of later complication, without mention of misadventure at the time of the procedure; Z74.01 Bed confinement status; Z82.3 Family history of stroke; Z82.49 Family history of ischemic heart disease and other diseases of the circulatory system; Z87.440 Personal history of urinary (tract) infections; Z93.1 Gastrostomy status
CPT/HCPCS: 36415; 71045; 74177; 80048; 80053; 81001; 82040; 83605; 84484; 85025; 87040; 87077; 87086; 87186; 87324; 87493; 93005; 96361; 96365; 99285; G0378; J1650; J2543; J3370; J3480; Q9967; J1200; J7030; J7040; Q0163

== ENCOUNTER 2019-04-19 12:57 | Emergency (ER) | payer MEDICARE, OTHER ==
[~2019-04-19] VITALS: Ht 167.6 cm; Wt 43.2 kg
[2019-04-19 12:59] VITALS: BP 123/71
== END 2019-04-19 16:35 | disposition home or self-care (01) ==
LOC: ED 15:54
DX: E86.0 Dehydration (principal); G35 Multiple sclerosis; T83.098D Other mechanical complication of other urinary catheter, subsequent encounter
CPT/HCPCS: 36415; 80053; 81001; 83605; 84145; 85025; 87040; 87086; 96360; 96361; 99283; J7030

== ENCOUNTER 2019-04-30 13:52 | Inpatient (IN) | payer MEDICARE, OTHER ==
[~2019-04-30] VITALS: Ht 167.6 cm; Wt 44.9 kg
[2019-05-05 12:01] VITALS: BP 110/71
== END 2019-05-05 15:17 | DRG 698 ==
LOC: ED 17:11 → EDIP 17:30 → 4WST 19:21
PROVIDERS: ADMIT Hospitalist; ATTEND Hospitalist
PROC: 0T9B70Z Drainage of Bladder with Drainage Device, Via Natural or Artificial Opening (ICD-10-PCS; 2019-04-30)
PROC: 02HV33Z Insertion of Infusion Device into Superior Vena Cava, Percutaneous Approach (ICD-10-PCS; principal; 2019-05-05)
PROC: B5181ZA Fluoroscopy of Superior Vena Cava using Low Osmolar Contrast, Guidance (ICD-10-PCS; 2019-05-05)
PROC: B548ZZA Ultrasonography of Superior Vena Cava, Guidance (ICD-10-PCS; 2019-05-05)
DX: T83.511A Infection and inflammatory reaction due to indwelling urethral catheter, initial encounter (principal); A41.59 Other Gram-negative sepsis; R53.2 Functional quadriplegia; N10 Acute pyelonephritis; L89.159 Pressure ulcer of sacral region, unspecified stage; B96.4 Proteus (mirabilis) (morganii) as the cause of diseases classified elsewhere; Z66 Do not resuscitate; G35 Multiple sclerosis; K59.00 Constipation, unspecified; M41.9 Scoliosis, unspecified; N30.90 Cystitis, unspecified without hematuria; N31.9 Neuromuscular dysfunction of bladder, unspecified; Y84.6 Urinary catheterization as the cause of abnormal reaction of the patient, or of later complication, without mention of misadventure at the time of the procedure; Z74.01 Bed confinement status; Z82.49 Family history of ischemic heart disease and other diseases of the circulatory system; Z82.61 Family history of arthritis; Z86.19 Personal history of other infectious and parasitic diseases; Z87.440 Personal history of urinary (tract) infections; Y92.89 Other specified places as the place of occurrence of the external cause
CPT/HCPCS: 36415; 36573; 51702; 80048; 80053; 81001; 83605; 83735; 84145; 85025; 85651; 86140; 87040; 87077; 87086; 87186; 93005; 99285; G0378; J0696; J2543; J3370; Q9966; C1751; J3480; J7030